=== PATIENT | male | born 1955 | race African-American/Black ===

== ENCOUNTER → 2019-11-29 | Outpatient (CLI) | payer OTHER ==
--- NOTE | 2019-11-29 17:19 | Diagnostic Imaging Report ---
TECHNIQUE: Magnetic resonance imaging of the LEFT SHOULDER was performed WITHOUT injected contrast. COMPARISON: None available. HISTORY: Shoulder sprain with pain. FINDINGS: The axial proton density images are limited motion artifact. BONE MARROW SIGNAL: [Normal.] GLENOHUMERAL JOINT: [There are degenerative changes characterized by joint space narrowing, thinning the particular cartilage and marginal osteophytes..] ACROMIOCLAVICULAR JOINT: [There are degenerative changes characterized by joint space narrowing, thinning of the articular cartilage and marginal osteophytes. ROTATOR CUFF MUSCLES/TENDONS: There is tendinosis and high-grade partial-thickness tear of the supraspinatus at the articular footprint. There is infraspinatus tendinosis without focal tear. There is tendinosis of the subscapularis without focal tear. The teres minor tendon is intact. There is no associated rotator cuff muscular atrophy. SYNOVIUM/BURSA: [No evidence of synovial thickening or bursitis. No effusion]. BICEPS TENDON, LONG HEAD: [There is increased fluid signal within the intracapsular portion of the lung head biceps tendon. GLENOID LABRUM: [There is diffuse labral degeneration. LIGAMENTS: The coracoclavicular, coracoacromial and glenohumeral ligaments are intact. ROTATOR INTERVAL: [Normal components]. CORACOACROMIAL ARCH: [Type II. SOFT TISSUES / MUSCULATURE: [Normal muscle bulk.] [No soft tissue lesion or axillary lymphadenopathy.] IMPRESSION: 1. Tendinosis and high-grade partial-thickness tear of the supraspinatus at the articular footprint. 2. Tendinosis of the infraspinatus, subscapularis and intracapsular long head biceps tendon. 3. Osteoarthritis of the glenohumeral and acromioclavicular joints. Signed by: Prashant Montiel MD on 11/29/2019 5:15 PM
== END ==
LOC: MRI 14:49
PROVIDERS: ATTEND Family Medicine
DX: S46.912D Strain of unspecified muscle, fascia and tendon at shoulder and upper arm level, left arm, subsequent encounter (principal)